=== PATIENT | female | born 1980 ===

== ENCOUNTER 2016-07-03 17:39 | Emergency (ER) | payer OTHER ==
[~2016-07-03] VITALS: Ht 166.4 cm; Wt 94.3 kg
[~2016-07-03 17:39] MED LIST: IBUPROFEN800 M1 PO; IRON18 MG PO; ONE A DAY PREN1 EACH PO
--- NOTE | 2016-07-03 19:04 | ED GENERAL ADULT ---
History of Present Illness General Chief Complaint: Female Urogenital Problems Stated Complaint: UTI, NOW WITH KIDNEY PAIN Source: patient Exam Limitations: no limitations Vital Signs & Intake/Output Vital Signs & Intake/Output Vital Signs Date Time Temp Pulse Resp B/P Pulse O2 O2 Flow FiO2 Ox Delivery Rate 07/03 2100 81 20 121/77 98 07/03 194 98.4 73 20 111/61 96 Room Air 07/03 175 99.4 80 20 129/75 99 Room Air Room Air Allergies Coded Allergies: Penicillins (ANAPHYLAXIS 07/03/16) olive oil (OLIVES - ANAPHYLAXIS OLIVE OIL - GI UPSET OR ANAPHYLAXIS 07/03/16) Triage Note: PT TO ED WITH C/O "KIDNEY PAIN, AND LEG PAIN", TOLD URINE AND CULTURE WAS NEGATIVE, BUT +KLEBSIELLA PNEMONIA IN URINE AND IS TAKING BACTRIM SINCE THURSDAY. Triage Nurses Notes Reviewed? yes Onset: Gradual Duration: worse persistent since (2 DAYS) Timing: no prior history Injury Environment: home Severity: moderate : No Patient currently breastfeeds: No HPI: Patient is a 36-year-old female currently breast-feeding presenting to the emergency with chief complaint of bilateral back pain that radiating down her legs and into bilateral thighs. Also reporting some dysuria. She saw her OB/ PACKAGING COORDINATOR last Thursday, diagnosed her with a urinary tract infection and put her on antibiotics. Denies any hematuria that she noticed but the FINAL CIGAR AND BOX EXAMINER told her that there was small amount of blood in the urine. Patient denying any vaginal discharge. No abdominal pain. Denies any fevers or chills. Pain is worse with certain positions and palpation. Denies taking anything for pain besides antibiotics. Symptoms seemed to get worse this morning so she decided to come in for evaluation today. Denies history of kidney stones. Still eating and drinking without difficulty. No diarrhea. Denies any large any weakness. Denies any urinary incontinence or retention. (GABI PANDA,BLAS) Reconcile Medications Naproxen (Naprosyn) 500 MG TABLET 1 TAB PO BID PRN PAIN Sulfamethoxazole/Trimethoprim (Sulfamethoxazole-Tmp Ds Tablet) 800 MG-160 MG TABLET 1 TAB PO BID ANTIBIOTIC (Reported) (MARITZA SANTOS,JANNA) Past History Travel History Traveled to [place] past 21 day No Medical History Any Pertinent Medical History? 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 residual left eye blindness. has not followed with a neurologist since. has had a vaginal delivery since but previous hx not addressed. 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 INFLAMMATION OF THE EYE THAT SHE IS FOLLOWING WITH THE OPTHALMOLOGIST. Surgical History Surgical History: SEE ABOVE LEFT CRANIOTOMY Psychosocial History What is your primary language Persian Tobacco Use: Never used ETOH Use: denies use Illicit Drug Use: denies illicit drug use Family History Hx Contributory? No (BLAS DAVIS) Review of Systems Review of Systems Constitutional: Reports: no symptoms. Comments Review of systems: See HPI, All other systems negative. Constitutional, no chills fever or weight loss HEENT: No visual changes no sore throat no congestion Cardiovascular: No chest pain ,palpitation , orthopnea or ankle swelling Skin, no jaundice no rashes Respiratory: No dyspnea cough sputum or hemoptysis GI: No nausea no vomiting : No dysuria No hematuria Muscle skeletal: no neck pain, Neurologic: No numbness no confusion NO BLEDSOE Psych: No stress anxiety or depression,. Heme/endocrine: No bruising no bleeding no polyuria or polydipsia Immunology: No splenectomy or history of AIDS (BLAS DAVIS) Physical Exam Physical Exam General Appearance: well developed/nourished, no apparent distress, alert, awake , comfortable Comments: Well-developed well-nourished person in no acute distress HEENT: Pupils equally round and reactive to light and accommodation. Nose is atraumatic. Neck: Supple, no lymphadenopathy, normal range of motion without pain or tenderness Back: Tender to palpation in the lumbar paraspinal region bilaterally, also right CVA tenderness on exam. Full range of motion. Negative my part straight leg raise bilaterally. Cardiovascular: Regular rate and rhythms no murmurs rubs or gallops, normal JVP Respiratory: Chest nontender. No respiratory distress.breath sounds clear to auscultation bilaterally Abdomen: Soft, nontender nondistended, no appreciable organomegaly. Normal bowel sounds. No ascites, no rebound or guarding. Extremity: No edema, muscular strength is 5 out of 5 in upper and lower extremities. Neuro: Alert oriented x3, patellar reflexes are 2+ bilaterally. Skin: No appreciable rash on exposed skin, skin is warm and dry. Psych: Mood and affect is normal, memory and judgment is normal. Core Measures ACS in differential dx? No CVA/TIA Diagnosis: No Severe Sepsis Present: No Septic Shock Present: No (GABI PANDA,BLAS) Progress Differential Diagnoses I considered the following diagnoses in my evaluation of the patient: Muscle strain, contusion, kidney stone, UTI, pyelonephritis, hydronephrosis, dehydration Plan of Care: Orders Procedure Date/time Status Add-on Test (ER Only) 07/03 2049 Active CULTURE,URINE 07/03 1936 Active URINE 07/03 1926 Complete COMPREHENSIVE METABOLIC PANEL 07/03 1926 Complete CBC WITHOUT DIFFERENTIAL 07/03 1926 Complete URINALYSIS 07/04 1903 Complete Laboratory Tests 07/03/161936: Urine Test NEGATIVE 07/03/161936: Anion Gap 11, Estimated GFR > 60, BUN/Creatinine Ratio 15.6, Glucose 81, Calcium 9.6, Total Bilirubin 0.4, AST 19, ALT 41, Alkaline Phosphatase 58, Total Protein 8.0, Albumin 4.5, Globulin 3.5, Albumin/Globulin Ratio 1.3, CBC w Diff NO MAN DIFF REQ, RBC 4.62, MCV 87.9, MCH 29.4, RDW 13.0, MPV 7.9, Gran % 57.5, Lymphocytes % 32.2, Monocytes % 6.8, Eosinophils % 2.2, Basophils % 1.3, Absolute Granulocytes 4.9, Absolute Lymphocytes 2.7, Absolute Monocytes 0.6, Absolute Eosinophils 0.2, Absolute Basophils 0.1, PUBS MCHC 33.4, Urine Color STRAW, Urine Clarity CLEAR, Urine pH 6.0, Ur Specific [place] 1.015, Urine Protein NEG, Urine Ketones NEG, Urine Nitrite NEG, Urine Bilirubin NEG, Urine Urobilinogen 0.2, Ur Leukocyte Esterase NEG, Ur Microscopic EXAM NOT REQUIRED, Urine Hemoglobin NEG, Urine Glucose NEG Microbiology 07/03 1936 URINE ROUT: Urine Culture - RECD Initial ED EKG: none Comments: 07/03/2016 9:15:50 PM patient informed of all lab work results and urinalysis. No signs of UTI. Normal white blood cell. Patient afebrile. Unlikely pyelonephritis. No indication for imaging at this time as there is no blood in the urine and kidney function within normal range. Patient is asymptomatic after IM Toradol. Patient will be treated for a muscle strain with anti- inflammatories. She will follow up with her FINAL CIGAR AND BOX EXAMINER. (BLAS DAVIS) Departure Departure Time of Disposition: 2115 Disposition: HOME OR SELF CARE Condition: Stable Clinical Impression Primary Impression: Back pain Qualifiers: Back pain location: low back pain Chronicity: acute Back pain laterality: bilateral Sciatica presence: with sciatica Sciatica laterality: bilateral sciatica Qualified Codes: M54.42 - Lumbago with sciatica, left side; M54.41 - Lumbago with sciatica, right side Referrals: UNKNOWN (PCP/Family) Additional Instructions: Take naproxen as prescribed help with pain and inflammation. Increase fluids. Avoid heavy lifting. Continue antibiotics previously prescribed. Return for worsening symptoms or concerns. Departure Forms: Customer Survey General Discharge Information Prescriptions: Current Visit Scripts Naproxen (Naprosyn) 1 TAB PO BID PRN PAIN #20 TAB (BLAS DAVIS) PA/PATTERN CLERK Co-Sign Statement Statement: ED Attending supervision documentation- [] I saw and evaluated the patient. I have also reviewed all the pertinent lab results and diagnostic results. I agree with the findings and the plan of care as documented in the PA's/PATTERN CLERK's documentation. x I have reviewed the ED Record and agree with the PA's/PATTERN CLERK's documentation. [] Additions or exceptions (if any) to the PAs/PATTERN CLERK's note and plan are summarized below: [] (JANNA SALAS MD) Critical Care Note Critical Care Note Critical Care Time: non-applicable (BLAS DAVIS)
[2016-07-03 19:54] LABS: ABSOLUTE BASOPHIL COUNT 0.1 /CUMM (0.0-0.2); ABSOLUTE EOSINOPHIL COUNT 0.2 /CUMM (0.0-0.7); ABSOLUTE GRANULOCYTE CT 4.9 /CUMM (1.4-6.5); ABSOLUTE LYMPH COUNT 2.7 /CUMM (1.2-3.4); ABSOLUTE MONOCYTE COUNT 0.6 /CUMM (0.10-0.60); BASOPHIL % 1.3 % (0.0-2.0); EOSINOPHIL % 2.2 % (0-5); GRANULOCYTE % 57.5 % (42.2-75.2); HEMATOCRIT 40.6 % (37-47); MEAN CORPUSCULAR HGB 29.4 PG (27.0-31.0); MEAN CORPUSCULAR HGB CONC 33.4 G/DL (33.0-37.0); MEAN CORPUSCULAR VOLUME 87.9 FL (81.0-99.0); MEAN PLATELET VOLUME 7.9 FL (7.4-10.4); PLATELET COUNT 300 /CUMM (130-400); RED BLOOD CELL CT 4.62 /CUMM (4.20-5.40); WHITE BLOOD CELL COUNT 8.5 /CUMM (4.8-10.8)
[2016-07-03] MEDS ORDERED: SULFAMETHOXAZO1 EAC1 PO (20:17)
[2016-07-03 21:00] VITALS: BP 121/77
[2016-07-03] MEDS ORDERED: NAPROSYN500 M1 PO (21:17)
== END 2016-07-03 21:21 ==
LOC: ERH 17:39
PROVIDERS: Physician Assistant
DX: M54.9 Dorsalgia, unspecified (principal)
CPT/HCPCS: 81003; 81025; 87086; 96372; J1885

== ENCOUNTER 2016-08-16 18:06 | Emergency (ER) | payer OTHER ==
[~2016-08-16] VITALS: Ht 166.4 cm; Wt 95.3 kg
[~2016-08-16 18:06] MED LIST changes: +NAPROSYN500 M1 PO; +SULFAMETHOXAZO1 EAC1 PO
[2016-08-16] MEDS ORDERED: MULTI-DAY VITA1 EACH PO (18:34)
[2016-08-16 19:15] LABS: ABSOLUTE BASOPHIL COUNT 0.1 /CUMM (0.0-0.2); ABSOLUTE EOSINOPHIL COUNT 0.2 /CUMM (0.0-0.7); ABSOLUTE GRANULOCYTE CT 6.6 /CUMM (1.4-6.5); ABSOLUTE LYMPH COUNT 2.9 /CUMM (1.2-3.4); ABSOLUTE MONOCYTE COUNT 0.6 /CUMM (0.10-0.60); BASOPHIL % 0.7 % (0.0-2.0); EOSINOPHIL % 1.5 % (0-5); GRANULOCYTE % 64.1 % (42.2-75.2); HEMATOCRIT 38.5 % (37-47); MEAN CORPUSCULAR HGB 29.5 PG (27.0-31.0); MEAN CORPUSCULAR HGB CONC 33.5 G/DL (33.0-37.0); MEAN CORPUSCULAR VOLUME 88.2 FL (81.0-99.0); MEAN PLATELET VOLUME 7.8 FL (7.4-10.4); PLATELET COUNT 286 /CUMM (130-400); RBC DISTRIBUTION WIDTH 13.3 % (11.5-14.5); RED BLOOD CELL CT 4.37 /CUMM (4.20-5.40); WHITE BLOOD CELL COUNT 10.3 /CUMM (4.8-10.8)
--- NOTE | 2016-08-16 19:34 | ED GI/GU/ABDOMINAL COMPLAINT ---
History of Present Illness General Chief Complaint: General Adult Stated Complaint: LT SIDE FLANK AND SHOULDER PAIN Source: patient Exam Limitations: no limitations Vital Signs & Intake/Output Vital Signs & Intake/Output Vital Signs Date Time Temp Pulse Resp B/P B/P Pulse O2 O2 Flow FiO2 Mean Ox Delivery Rate 08/16 2041 97.4 75 16 143/79 99 Room Air 08/16 1812 97.1 80 16 113/70 97 Room Air ED Intake and Output 08/17 0000 08/16 1200 Intake Total Output Total Balance Patient 210 lb Weight Weight Reported by Patient Measurement Method Allergies Coded Allergies: Penicillins (ANAPHYLAXIS 07/03/16) olive oil (OLIVES - ANAPHYLAXIS OLIVE OIL - GI UPSET OR ANAPHYLAXIS 07/03/16) sulfamethoxazole (From BACTRIM) (BODY ACHES 08/16/16) trimethoprim (From BACTRIM) (BODY ACHES 08/16/16) Reconcile Medications Multivitamin (Multi-Day Vitamins) 1 EACH TABLET 1 TAB PO DAILY SUPPLEMENT ( Reported) Triage Note: PT HAVE LEFT SIDED ABD PAIN THAT STARTED TODAY. PT STATES SHE IS ALSO HAVING TENDERNESS TO HER RIGHT SIDE OF HER ABD AND ALSO IN HER LEFT SHOULDER. Triage Nurses Notes Reviewed? yes ? N Is pt currently ? No Onset: Abrupt Duration: day(s):, week(s):, intermittent Timing: recent history Quality/Severity: moderate, sharpness Location: generalized abdomen Radiation: no radiation No Modifying Factors: none HPI: 36-year-old female comes into emergency room with complaints of back pain abdominal pain and left shoulder pain. Symptoms of been going on for the past couple weeks in regards to the back pain feeling like a tick kidneys. Today she started with some generalized abdominal pain. Patient reports the pain shoots pain is located in different areas. Pain will radiate to her left shoulder at times. Denies any chest pain. Denies any other associated symptoms. (CHRISTIANO VALLEJO) Past History Travel History Traveled to [place] past 21 day No Medical History Any Pertinent Medical History? 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 residual left eye blindness. has not followed with a neurologist since. has had a vaginal delivery since but previous hx not addressed. 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 INFLAMMATION OF THE EYE THAT SHE IS FOLLOWING WITH THE OPTHALMOLOGIST. Surgical History Surgical History: SEE ABOVE LEFT CRANIOTOMY Psychosocial History What is your primary language Greek Tobacco Use: Never used ETOH Use: occasional use Illicit Drug Use: denies illicit drug use Family History Hx Contributory? No (CHRISTIANO VALLEJO) Review of Systems Review of Systems Constitutional: Reports: no symptoms. EENTM: Reports: no symptoms. Respiratory: Reports: no symptoms. Cardiovascular: Reports: no symptoms. GI: Reports: see HPI. Genitourinary: Reports: see HPI. Musculoskeletal: Reports: see HPI. Skin: Reports: no symptoms. Neurological/Psychological: Reports: no symptoms. Hematologic/Endocrine: Reports: no symptoms. Immunologic/Allergic: Reports: no symptoms. All Other Systems: Reviewed and Negative (CHRISTIANO VALLEJO) Physical Exam Physical Exam General Appearance: well developed/nourished, no apparent distress, alert Head: atraumatic, normal appearance Eyes: Bilateral: normal appearance, PERRL, EOMI. Ears, Nose, Throat, Mouth: hearing grossly normal, moist mucous membrane Neck: normal inspection Respiratory: normal breath sounds, no respiratory distress Cardiovascular: regular rate/rhythm Gastrointestinal: soft, non-tender Back: normal inspection Extremities: normal range of motion Neurologic/Psych: awake, alert, oriented x 3, normal gait, normal mood/affect Skin: intact, normal color Core Measures ACS in differential dx? No Severe Sepsis Present: No Septic Shock Present: No (CHRISTIANO VALLEJO) Progress Differential Diagnosis: appendicitis, biliary colic, colon cancer, cholecystitis , diverticulitis, ectopic , hepatitis, ischemic bowel, inflamm bowel dis, intrauterine , kidney stone, ovarian cyst, ovarian torsion, pancreatitis, PID/cervicitis, peptic ulcer, PUD/GERD, UTI/pyelo Plan of Care: Orders Procedure Date/time Status Add-on Test (ER Only) 08/16 1941 Active EKG 08/16 1941 Active D-DIMER 08/16 185 Complete URINE 08/16 184 Complete URINALYSIS 08/17 1839 Complete LIPASE 08/17 1839 Complete COMPREHENSIVE METABOLIC PANEL 08/17 1839 Complete CBC WITHOUT DIFFERENTIAL 08/17 1839 Complete Laboratory Tests 08/16/16 1859: Anion Gap 11, Estimated GFR > 60, BUN/Creatinine Ratio 16.3, Glucose 87, Calcium 9.6, Total Bilirubin 0.3, AST 20, ALT 54 H, Alkaline Phosphatase 54, Total Protein 7.6, Albumin 4.3, Globulin 3.3, Albumin/Globulin Ratio 1.3, Lipase 108, D-Dimer 202, CBC w Diff NO MAN DIFF REQ, RBC 4.37, MCV 88.2, MCH 29.5, RDW 13.3, MPV 7.8, Gran % 64.1, Lymphocytes % 28.2, Monocytes % 5.5, Eosinophils % 1.5, Basophils % 0.7, Absolute Granulocytes 6.6 H, Absolute Lymphocytes 2.9, Absolute Monocytes 0.6, Absolute Eosinophils 0.2, Absolute Basophils 0.1, PUBS MCHC 33.5, Urine Color YEL, Urine Clarity CLEAR, Urine pH 8.0, Ur Specific [place] 1.015, Urine Protein NEG, Urine Ketones NEG, Urine Nitrite NEG, Urine Bilirubin NEG, Urine Urobilinogen 0.2, Ur Leukocyte Esterase NEG, Ur Microscopic EXAM NOT REQUIRED, Urine Hemoglobin NEG, Urine Glucose NEG, Urine Test NEGATIVE Initial ED EKG: normal intervals, normal p-waves, normal QRS complex, normal sinus rhythm, rate (35) (GERALDINE PANDA,CHRISTIANO) Departure Departure Disposition: HOME OR SELF CARE Condition: Stable Clinical Impression Primary Impression: Abdominal pain Secondary Impressions: Back pain Referrals: GAYATHRI HERNANDEZ,RUPESH Levy (PCP/Family) Additional Instructions: Take Motrin/Tylenol for pain at home. Follow-up with your primary care doctor on Thursday. Return if any concerns worsening symptoms. Cause of ear pain is unclear at this time. Please go over all results of today's visit with your primary care doctor. Contact your primary care doctor to let them know you were here in the emergency room. There may be nonspecific findings which may not be related to your visit today here in the emergency room but may require further evaluation and chronic monitoring by your primary care doctor. If you had a laceration today the chance of foreign body always remains. You should follow-up with your primary care doctor for recheck in 3-5 days for a wound check. If you had an x-ray done there is a chance that a fracture could have been missed on initial read and you should follow-up with your primary care doctor for repeat x-rays if symptoms persist. If your blood pressure was elevated here in the emergency room please have rechecked by her primary care doctor within the next 48 hours by your primary care doctor. If you were prescribed a narcotic here in the emergency room or any type of controlled substances you're not allowed to drive while taking this medication or operate any type of heavy machinery. Narcotics can make you feel lightheaded dizziness nausea and can cause constipation. You may need to cherry picker operator a stool softener. Thank you for choosing [facility] emergency room. Please return to the emergency room immediately if you have any other concerns worsening of symptoms. Departure Forms: Customer Survey D/C INS-APPENDICITIS EXCLUSION General Discharge Information Comments Patient clinically looks well. Patient is in no apparent distress. Shared decision making. At this time due to normal labs and rate low suspicion for any type of appendicitis cholecystitis or kidney stone patient discharged with close follow-up with primary care doctor. Discussed the possibility of getting CT scan. Due to normal labs and normal workup at this point patient will follow up with her primary care doctor on Thursday. CT scan was offered the patient agrees with my plan of care. She is not any type of distress upon discharge. She clinically looks well. This does not appear to be in any type of atypical cardiac presentation. Her EKG is within normal limits and a negative d-dimer. (CHRISTIANO VALLEJO) PA/MANUFACTURING ENGINEERING INTERN Co-Sign Statement Statement: ED Attending supervision documentation- [] I saw and evaluated the patient. I have also reviewed all the pertinent lab results and diagnostic results. I agree with the findings and the plan of care as documented in the PA's/MANUFACTURING ENGINEERING INTERN's documentation. [x] I have reviewed the ED Record and agree with the PA's/MANUFACTURING ENGINEERING INTERN's documentation. [] Additions or exceptions (if any) to the PAs/MANUFACTURING ENGINEERING INTERN's note and plan are summarized below: [] (ALEX LU DO
[2016-08-16 20:42] VITALS: BP 143/79
== END 2016-08-16 21:15 ==
LOC: ERH 18:06
PROVIDERS: Physician Assistant Medical
DX: R10.84 Generalized abdominal pain (principal); M54.9 Dorsalgia, unspecified
CPT/HCPCS: 81003; 81025; 93005; 93010